=== PATIENT | male | born 1940 | race Caucasian/White ===

== ENCOUNTER → 2019-02-07 09:00 | Outpatient (CLI) | payer MEDICARE, BC ==
[2015-08-21 08:06] VITALS: BMI 34.1
[~2019-02-07 09:00] MED LIST: ACCUPRIL20 MG PO; ASPIRIN325 MG PO; ASPIRIN81 MG PO; BAYER CHEWABLE81 MG PO; BRILINTA90 MG PO; CORDARONE200 MG PO; HYDROCHLOROTHIA50 MG; HYDROCHLOROTHIA50 MG PO; HYDROCODONE-APA1 TAB PO; K-DUR20 MEQ PO; LANTUS INSULIN10 ML SC; LASIX40 MG PO; LEVAQUIN750 MG PO; LOPRESSOR25 MG PO; LOVENOX INJ100 MG/ML SC; MAG-OX 400 MG400 MG PO; NITROQUICK0.4 MG SL; PLAVIX75 MG PO; PRAVACHOL80 MG PO; RESTORIL7.5 MG PO; XANAX1 MG PO
--- NOTE | 2019-02-09 12:59 | EC ---
PATIENT:ADALI MILLER DATE OF SERVICE: 02/07/19 SEX: M MEDICAL RECORD: [id number] DATE OF : 40 LOCATION:[facility] [place] AGE OF PATIENT: 78 ADMISSION DATE: 02/07/19 REFERRING PHYSICIAN: INTERPRETING PHYSICIAN: ADRIAN MONAE MD ECHOCARDIOGRAM REPORT ECHO CHARGES 4 ECHO COMPLETE Date: 02/07/19 CLINICAL DIAGNOSIS: CARDIOMYOPATHY H/O HTN-A-FIB ECHOCARDIOGRAPHIC MEASUREMENTS (adult normal given) AC root (d.<3.7cm) 3.9 cm LV Septum d (<1.2 cm> 1.5 cm Valve Excursion 2.4 cm LV Septum (systole) 1.7 cm Left Atria (s.<4.0cm> 4.9 cm LVPW d(<1.2cm) 0.9 cm RV (d.<2.3cm) 3.0 cm LVPW (sytole) 1.3 cm LV diastole(<5.6CM) 5.3 cm MV E-F(>70mm/sec) cm LV systole 3.9 cm LVOT Diameter 2.2 cm MV exc.(>10mm) cm Est.ejection fraction (50-75%) % DOPPLER: LVIT cm/sec A 95.0 cm/sec E 63.0 cm/sec LA cm/sec RVSP 22.3 mmHg LVOT 83.0 cm/sec AOP1/2T m/s Asc. Ao 105 cm/sec RVOT 49.0 cm/sec RA cm/sec PA 74.0 cm/sec AV Gradient Peak 4.4 mmHg AV Mean 2.7 mmHg AV Area 3.3 cm MV Gradient Peak 4.8 mmHg MV Mean 4.8 mmHg MV Area cm COMMENTS: OP - HC Culinary Worker: 1 SINA SUGAR GROVE Spring Forger: 3 Dr. Camarillo TAPE# PACS Pericardial Effusion N DATE OF SERVICE: Adequate 2D echo, Color Flow, Spectral Doppler, and M-mode LVH is present. LV internal dimensions are normal. LV is mildly globally hypo with EF mildly reduced. Estimated EF of 40% to 45%. Aortic valve is tricuspid. No evidence of stenosis of Doppler interrogation. Left atrium dilated at 4.9 cm. Mitral valve shows no prolapse. Trace MR. Right-sided chambers are grossly normal. Mild TR. ECHOCARDIOGRAM REPORT [id number] ADALI MILLER TRANSINT:[id number] Voice Confirmation ID: [id number] DOCUMENT ID: [id number] ADRIAN MONAE MD at 1259 CC: [id number] DICTATION DATE: 02/08/191433 LOCAL TRUCK DRIVER: 02/08/19 2311 DEP CLI 02/07/19 [place] [id number] [place] [id number]
== END | disposition home or self-care (01) ==
LOC: D.HCCECHO 09:00
PROVIDERS: ATTEND Internal Medicine Interventional Cardiology
DX: I42.9 Cardiomyopathy, unspecified (principal)

== ENCOUNTER 2019-09-19 17:06 | Inpatient (IN) | payer MEDICARE, BC ==
[~2019-09-19] VITALS: Ht 193 cm; Wt 118.2 kg
[2019-09-19 17:43] LABS: BASOPHILS 0.2 % (0-2); EOSINOPHILS 0.7 % (0-7); HEMOGLOBIN 14.3 g/dL (13.5-17.5); IMMATURE GRANULOCYTES 0.4 % (0-5); LYMPHOCYTES 24.8 % (15-50); MCH 29.2 pg (26.0-34.0); MCHC 32.5 g/dL (31.0-37.0); MCV 89.8 fL (80.0-100.0); MEAN PLATELET VOLUME 10.4 fL (7.4-10.4); MONOCYTES 9.1 % (2-11); NEUTROPHILS 64.8 % (40-80); PLATELET COUNT 294 10x3/uL (130-400); RDW 14.9 % (11.5-14.5); WBC 12.1 10x3/uL (4.8-10.8)
[2019-09-19] MEDS ORDERED: BAYER CHEWABLE81 MG PO (18:07)
[2019-09-19] MEDS ORDERED: ASPIRIN325 MG PO (18:08)
[2019-09-19] MEDS ORDERED: CRESTOR20 MG PO (18:11)
[2019-09-19] MEDS ORDERED: VITAMIN B-6100 MG PO (18:12)
[2019-09-19] MEDS ORDERED: VITAMIN B-12100 MCG PO (18:12)
[2019-09-19] MEDS ORDERED: ASCORBIC ACID500 MG PO (18:12)
[2019-09-19] MEDS ORDERED: LANTUS INS100 UNITS/ SC (18:13)
[2019-09-19] MEDS ORDERED: NOVOLOG100 UNIT/1 SC (18:13)
[2019-09-19 18:14] LABS: T4 THYROXINE 9.9 ug/dL (4.7-13.3); THYROID STIMULATING HORMONE 1.48 uIU/mL (0.36-3.74)
[2019-09-19 18:17] VITALS: BP 121/74; Ht 193 cm; Wt 118.2 kg
[2019-09-19 19:04] LABS: CKMB 0.9 U/L (0.0-3.6)
[2019-09-19 19:05] LABS: TROPONIN-I < 0.017 ng/mL (0.000-0.060)
[2019-09-19 20:00] VITALS: BP 120/58; BP 131/50; BP 138/61
[2019-09-20] VITALS (9 sets, daily range): BP systolic 116–168; BP diastolic 44–73
[2019-09-20 06:24] LABS: ANION GAP 6.9 mmol/L (8-16); CALCIUM 8.3 mg/dL (8.5-10.1); CARBON DIOXIDE 30.8 mmol/L (21.0-32.0); CREATININE - SERUM 1.3 mg/dL (0.6-1.3); POTASSIUM - SERUM 3.7 mmol/L (3.5-5.1)
--- NOTE | 2019-09-20 06:37 | HP ---
PATIENT: ADALI MILLER MEDICAL RECORD: [id number] ACCOUNT: [id number] LOCATION:[address] : 40 ADMISSION DATE: 09/19/19 PCP: MIREYA GOODE MD HISTORY AND PHYSICAL EXAMINATION REASON FOR ADMISSION: Lightheadedness and fatigue. HISTORY OF PRESENT ILLNESS: The patient is a 78-year-old male with previous history of AODM, remote non-STEMI 06/2015 with a distal RCA PTCA remotely and subacute non-STEMI 08/2015. He was admitted by Dr. Goode at that time for CABG. He had been feeling pretty well, had an echo a year ago that showed an EF of 40-45% and LAE with atrial size of 4.9 cm. He has had paroxysmal atrial fibrillation. He said for the last 3 months he has been a little tired. If he stands up too long, he will see spots and feel lightheaded. He has to sit down, he cannot do much in the yard like he used to. His brother who was over with him yesterday and he was standing up talking to him and almost fainted. Denies chest pain, but had some mild dyspnea on exertion. He has seen Dr. Camarillo First of the Year and had felt well and I saw him as well, he was not having any of these symptoms. He is advised to come to the office today where he was noted to be orthostatic with a blood pressure of 110/60 sitting, 120/60 lying, the heart rate in the 50s. EKG showed sinus bradycardia with trigeminal unifocal PVCs and slow rate. He is now admitted for hypotension, possible sick sinus syndrome. He is on low-dose beta ilana and antihypertensives. PAST MEDICAL HISTORY: Non-STEMI times 2 in 2016, AODM, hyperlipidemia, RCA stent with multivessel disease, essential hypertension, remote gallstone pancreatitis post cholecystectomy, nephrolithiasis, osteoarthritis, BPH, obesity, remote pneumonia, and diabetic retinopathy. PAST SURGICAL HISTORY: Kidney stone removal in 1991, cholecystectomy in 1984, bilateral rotator cuff injuries without repair remotely, and CABG 2016. FAMILY HISTORY: Mother at 50 of unknown cause. Father from suicide at 45. SOCIAL HISTORY: Nonsmoker, has occasional Santa. Retired. ALLERGIES: SULFA AND LIPITOR. MEDICATIONS: Metoprolol 12.5 b.i.d., hydrochlorothiazide 50 mg p.o. q.a.m., quinapril 20 mg a day, Lantus 38 units subQ q.p.m., sliding scale insulin. Aspirin 325 mg a day, Crestor 20 mg at bedtime. REVIEW OF SYSTEMS: CONSTITUTIONAL: He has been fatigued for almost 3 months. No fever. Fair appetite. HEENT: No recent visual change, sinus congestion, or sore throat. RESPIRATORY: Mild dyspnea on exertion. No cough, sputum production. CARDIAC: No exertional chest pain, claudication, edema. Has felt lightheaded at times when he stands. GASTROINTESTINAL: No nausea, vomiting, change in stools, blood per rectum. GENITOURINARY: Nocturia once nightly. ENDOCRINE: Denies polyuria, polydipsia, heat or cold intolerance. NEUROLOGIC: No history of stroke, TIA, or vascular headaches. HISTORY AND PHYSICAL [id number] ADALI MILLER INTEGUMENT: No rash or itching. PSYCHIATRIC: Denies depressed mood. PHYSICAL EXAMINATION: GENERAL: The patient is alert and oriented, but a little lightheaded when he stands. VITAL SIGNS: Height 76 inches, weight is 250, heart rate is 50 with ectopic beats. Sats 94% on room air. GENERAL: The patient appears pale, but alert and oriented. HEENT: His eyes are clear. Oropharynx unremarkable. NECK: Supple, without bruits or masses. CHEST: Clear without wheeze or rales. HEART: Bradycardic with occasional ectopic beat. No murmur. Chest wall is well healed from sternotomy. ABDOMEN: Obese, soft, nontender, no organomegaly. GENITOURINARY: Deferred. EXTREMITIES: 2+ bipedal edema. NEUROLOGIC: He has decreased sensation bottoms of both feet to light touch. LABORATORY DATA AND DIAGNOSTIC STUDIES: His EKG shows sinus bradycardia with trigeminal PVCs. No old EKG to compare. Labs are currently pending. His blood pressure was orthostatic with lying 120/60, sitting 110/60 and standing 90/60 and heart rate in the 50s. ASSESSMENT: 1. Orthostatic hypotension. 2. Bradycardia, possible early sick sinus syndrome. 3. History of atrial fibrillation. 4. Ventricular arrhythmia, trigeminy. 5. Previous yyt-SU-ghcmoqusq myocardial infarction with CABG in 2016, hypertension, diabetes mellitus with A1c of 8.0. 6. Hyperlipidemia. PLAN: The patient admitted for cardiac monitoring. We will give fluids tonight. Hold antihypertensives and beta blockers. Echocardiogram, cardiology consult if signs of sick sinus syndrome occur. TRANSINT:[id number] Voice Confirmation ID: [id number] DOCUMENT ID: [id number] SYL ARRINGTON MD at 0637 CC: [id number] DICTATION DATE: 09/19/191753 BRANCH ASSOCIATE TELLER: 09/19/19 2352 ADM IN [place] [address] [place] [address]
--- NOTE | 2019-09-20 07:32 | NUR ---
ORTHOSTATIC VS: LAYING- BP 135/64 HR 56. SITTING- BP 156/71 HR 61. STANDING- BP 154/67 HR 66.
[2019-09-20 08:10] LABS: T4 THYROXIN - FREE 1.21 ng/dL (0.76-1.46); THYROID STIMULATING HORMONE 1.44 uIU/mL (0.36-3.74)
--- NOTE | 2019-09-20 12:19 | NUR ---
I have reviewed this patient and I concur with the Shift Assessment completed by the Licensed Practical Nurse today this shift.
--- NOTE | 2019-09-20 15:30 | NUR ---
CASE MANAGEMENT WANTS TO KNOW IF PT CAN BE DC'D SINCE CARDIOLOGY IS NOT GOING TO DO ANYTHING FURTHER WHILE IN HOSPITAL. CALLED AND SPOKE WT DR. KAMARA NURSE RONALDO AND SHE STATES SHE WILL LEAVE A NOTE FOR HIM.
--- NOTE | 2019-09-20 16:58 | NUR ---
SPOKE WITH DR. ARRINGTON HE STATES HE WANTS TO HYDRATE PATEINET OVERNIGHT AND GET A CTA CAROTID TO CHECK FOR RIGHT CAROTID STENOSIS TOMORROW MORNING BEFORE HE CAN GO. HE STATES TO ORDER NS AT 50ML/HR AND ORDER CTA. I VERBALIZED UNDERSTANDING. HE STATES TO TRANSFER HIM INTO PT'S ROOM. TRANSFERED OVER THE PHONE TO ROOM.
--- NOTE | 2019-09-20 19:00 | NUR ---
RECEIVED BEDSIDE REPORT. PATIENT IS ALERT AND ORIENTED, RESTING COMFORTABLY IN BED. RESPIRATIONS ARE EVEN AND UNLABORED. NO S/S OF DISTRESS. NO C/O PAIN. CALL LIGHT WITHIN REACH. WILL CPOC.
[2019-09-21] VITALS: BP 125/64; BP 126/39; BP 130/56
[2019-09-21 04:00] VITALS: BP 114/62; BP 128/57; BP 131/65
[2019-09-21 05:32] LABS: HEMATOCRIT 41.1 % (42.0-54.0); HEMOGLOBIN 13.8 g/dL (13.5-17.5); MCH 29.5 pg (26.0-34.0); MCHC 33.6 g/dL (31.0-37.0); MEAN PLATELET VOLUME 10.1 fL (7.4-10.4); NEUTROPHILS 56.3 % (40-80); PLATELET COUNT 280 10x3/uL (130-400); RBC 4.68 10x6/uL (4.20-6.10); RDW 14.3 % (11.5-14.5); WBC 9.9 10x3/uL (4.8-10.8)
[2019-09-21 05:37] LABS: MCV 87.8 fL (80.0-100.0)
[2019-09-21 05:57] LABS: ANION GAP 8.6 mmol/L (8-16); CALCIUM 8.7 mg/dL (8.5-10.1); CARBON DIOXIDE 29.4 mmol/L (21.0-32.0); CREATININE - SERUM 1.2 mg/dL (0.6-1.3)
--- NOTE | 2019-09-21 08:22 | NUR ---
ORTHOSTATIC VS: SITTING- BP 146/65 HR 69. STANDING- BP 147/69 HR 80. LAYING- BP 134/61 HR 75.
[2019-09-21 09:00] VITALS: BP 134/61; BP 146/65; BP 147/69
--- NOTE | 2019-09-21 10:19 | NUR ---
CALLED AND SPOKE WITH RONALDO ARIAS AT DR. ARRINGTON'S OFFICE. SHE STATES SHE WILL HAVE DR. ARRINGTON CALL ME BACK ABOUT PT'S RESULTS AND IF HE CAN BE DC. I VERBALIZED UNDERSTANDING.
--- NOTE | 2019-09-21 11:07 | NUR ---
SPOKE WTIH DR. ARRINGTON OVER THE PHONE AND READ HIM RESULTS FROM CTA. HE STATES THATS NOT BAD WHAT THE DOPPLER READ AND HE IS NOT IN BAD SHAPE. HE STATES TO TELL PT THIS AND TO PUT IN A DISCHARGE ORDER. D/C BETABLOCKERS, HCTZ, AND LISINOPRIL. HAVE CARDILOGY SET UP PT WITH EVENT MONITOR AND HAVE PT F/U WITH THEM AND TO FOLLOW UP WITH HIM IN 1 WEEK . I VERBALIZED UNDERSTANDING.
--- NOTE | 2019-09-21 13:20 | MORECARE ---
CASE MANAGEMENT DISCHARGE SUMMARY PATIENT: ADALI MILLER UNIT: [id number] ADM DATE: 09/20/19 AGE: 78 : 40 SEX: M ROOM/BED: D.0725 AUTHOR: JANINE FLETCHER PHYSICIAN: REFERRING PHYSICIAN: SYL MONTILLA MD DATE OF SERVICE: 09/21/19 Discharge Plan Patient Name: ADALI MILLER Facility: [facility]:[place] : 1940 Planned Disposition: Home Anticipated Discharge Date: 09/21/19 Discharge Date: Expected LOS: 1 Initial Reviewer: [email or web address] Initial Review Date: 09/19/2019 Generated: 09/21/19 2:19 pm Comments DCP- Discharge Planning Updated by [email or web address]: Lata Morse on 09/21/19 12:[address] DC needs: CM contacted Jennie, with Dr. Camarillo's office, the office is aware of the need for an Event monitor, and appointment for follow-up October 24 @1100. Encouraged patient to call the provided phone number, when his Event monitor arrives, through the mail, to have assistance with putting it on and having it activated. He and his voice understanding. No other needs voiced. CM met with patient to discuss initial discharge planning. Patient is in agreement to proceed with the assessment. Patient reports that he lives at home independently with his , Lottie Miller. Patient is alert/oriented. Stairs/steps: Lives in a 3 story house, stairs have rails. PCP: Dr. Montilla. Pharmacy: [facility]. Patient states he has been able to obtain all of her prescribed medications. HHS: No. DME: No. Patient gives permission to speak with family members/care givers. Emergency contact: Lottie Miller () [phone]. 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 CM discussed the availability of HH, Rehab, SNF, OP Therapy, DME services. Patient denies the need for additional services at this time and feels safe returning to previous environment. Patient denies hospitalization within the past 30 days. Patient denies the use of community resources SALES SUPERINTENDENT. Transportation at time of discharge: Lottie. Coverage Notice Reviewer: [email or web address] Ney Ovalles Notice Issued Date-Time: 09/20/2019 14:00 Notice Type: Medicare Outpatient Observation Notice Notice Delivered To: Patient Relationship to Patient: Director Channel Name: Delivery Method: HAND - Hand Delivered Eleanor Days: Prior Verbal Notification: Recipient Understood Notice: Yes Recipient Signature: Yes Med Rec Note Co-signed by Attending: Coverage Notice Comment: STOVER DELIVERED Patient Name: ADALI MILLER Page [id number] at 1320 All edits/amendments must be made on the electronic document DICTATION DATE: 09/21/19 1320 SEMICONDUCTOR WAFERS MARKER: NAE 09/21/19 1320 RPT#: [id number] DC DATE: STATUS: ADM IN [facility] [address] [place] [address] END OF REPORT
--- NOTE | 2019-09-21 13:23 | NUR ---
I have reviewed this patient and I concur with the Shift Assessment completed by the Licensed Practical Nurse today this shift.
--- NOTE | 2019-09-21 14:00 | NUR ---
DISCHARGE TEACHING DONE AND INSTRUCTIONS GIVEN TO PT. PT HAS NO FURTHER QUESTIONS. CHART COPY SIGNED. RIGHT WRIST 20G IV DC'D WITH CATH INTACT. TELEMTRY DC'D.
--- NOTE | 2019-09-21 14:30 | NUR ---
PT TAKEN OUT VIA WC AND LEFT WITH IN PERSONAL VEHICLE.
--- NOTE | 2019-09-21 16:57 | MORECARE ---
CASE MANAGEMENT DISCHARGE SUMMARY PATIENT: ADALI MILLER UNIT: [id number] ADM DATE: 09/20/19 AGE: 78 : 40 SEX: M ROOM/BED: D.2268 AUTHOR: JANINE FLETCHER PHYSICIAN: REFERRING PHYSICIAN: SYL MONTILLA MD DATE OF SERVICE: 09/21/19 Discharge Plan Patient Name: ADALI MILLER Facility: [facility]:[place] : 1940 Planned Disposition: Home Anticipated Discharge Date: 09/21/19 Discharge Date: 09/21/2019 Expected LOS: 1 Initial Reviewer: [email or web address] Initial Review Date: 09/19/2019 Generated: 09/21/19 5:56 pm Comments DCP- Discharge Planning Updated by [email or web address]: Lata Morse on 09/21/19 12:[address] DC needs: CM contacted Jennie, with Dr. Camarillo's office, the office is aware of the need for an Event monitor, and appointment for follow-up October 24 @1100. Encouraged patient to call the provided phone number, when his Event monitor arrives, through the mail, to have assistance with putting it on and having it activated. He and his voice understanding. No other needs voiced. CM met with patient to discuss initial discharge planning. Patient is in agreement to proceed with the assessment. Patient reports that he lives at home independently with his , Lottie Miller. Patient is alert/oriented. Stairs/steps: Lives in a 3 story house, stairs have rails. PCP: Dr. Montilla. Pharmacy: [facility]. Patient states he has been able to obtain all of her prescribed medications. HHS: No. DME: No. Patient gives permission to speak with family members/care givers. Emergency contact: Lottie Miller () [phone]. Patient is Independent with all ADL's, medication management SHAKER TENDER. CM discussed the availability of HH, Rehab, SNF, OP Therapy, DME services. Patient denies the need for additional services at this time and feels safe returning to previous environment. Patient denies hospitalization within the past 30 days. Patient denies the use of community resources SHAKER TENDER. Transportation at time of discharge: Lottie. Coverage Notice Reviewer: [email or web address] Ney Ovalles Notice Issued Date-Time: 09/20/2019 14:00 Notice Type: Medicare Outpatient Observation Notice Notice Delivered To: Patient Relationship to Patient: Toolroom Machinist Name: Delivery Method: HAND - Hand Delivered Eleanor Days: Prior Verbal Notification: Recipient Understood Notice: Yes Recipient Signature: Yes Med Rec Note Co-signed by Attending: Coverage Notice Comment: STOVER DELIVERED Last DP export: 09/21/19 12:20 p Patient Name: ADALI MILLER Page [phone] at 1657 All edits/amendments must be made on the electronic document DICTATION DATE: 09/21/191655 VENEER MANUFACTURER: NAE 09/21/191655 RPT#: [id number] DC DATE:09/21/19 STATUS: DIS IN [facility] [address] [place] [address] END OF REPORT
--- NOTE | 2019-09-22 08:51 | EC ---
PATIENT:ADALI MILLER DATE OF SERVICE: 09/20/19 SEX: M MEDICAL RECORD: [id number] DATE OF : 40 LOCATION:D.M2 D.212 AGE OF PATIENT: 78 ADMISSION DATE: 09/20/19 REFERRING PHYSICIAN: INTERPRETING PHYSICIAN: ADRIAN MONAE MD ECHOCARDIOGRAM REPORT ECHO CHARGES 4 ECHO COMPLETE Date: 09/20/19 CLINICAL DIAGNOSIS: BRADYCARDIA, CHF, CAD ECHOCARDIOGRAPHIC MEASUREMENTS (adult normal given) AC root (d.<3.7cm) 3.6 cm LV Septum d (<1.2 cm> 1.2 cm Valve Excursion 2.0 cm LV Septum (systole) 1.4 cm Left Atria (s.<4.0cm> 3.8 cm LVPW d(<1.2cm) 1.3 cm RV (d.<2.3cm) 3.7 cm LVPW (sytole) 1.5 cm LV diastole(<5.6CM) 5.6 cm MV E-F(>70mm/sec) cm LV systole 4.9 cm LVOT Diameter 1.8 cm MV exc.(>10mm) cm Est.ejection fraction (50-75%) % DOPPLER: LVIT cm/sec A 88 cm/sec E 106 cm/sec LA cm/sec RVSP 19.0 mmHg LVOT 77 cm/sec AOP1/2T m/s Asc. Ao 99 cm/sec RVOT 65 cm/sec RA cm/sec PA 81 cm/sec AV Gradient Peak 3.9 mmHg AV Mean 2.2 mmHg AV Area 2.5 cm MV Gradient Peak 5.1 mmHg MV Mean 2.6 mmHg MV Area cm COMMENTS: Certified Professional Controller: Angie SHEPHERD Miller Supervisor: 3 Dr. Camarillo TAPE# PACS Pericardial Effusion N DATE OF SERVICE: Adequate 2D, color flow imaging, spectral Doppler, and M-Mode Mild LVH. LV internal dimension is normal. Wall motion is normal. EF is greater than or equal to 55%. Aortic valve is tricuspid. No evidence of stenosis by Doppler interrogation. The left atrium is normal at 3.8 cm. Mitral valve shows no prolapse. Trace to mild MR. Right-sided chambers are grossly normal. Trivial TR. ECHOCARDIOGRAM REPORT [id number] ADALI MILLER TRANSINT:[id number] Voice Confirmation ID: [id number] DOCUMENT ID: [id number] ADRIAN MONAE MD at 0851 CC: [id number] DICTATION DATE: 09/21/19 142 DIRECTOR OF PSYCHIATRY: 09/21/19 1505 DIS IN 09/21/19 [facility] [address] [place] [id number]
== END 2019-09-21 14:31 | disposition home or self-care (01) | DRG 312 ==
LOC: D.M2 17:06 → OBSVTIME 17:08 → D.M2 09-20 21:59
PROVIDERS: ADMIT Family Medicine; ATTEND Family Medicine
DX: I95.1 Orthostatic hypotension (principal); R00.1 Bradycardia, unspecified; R00.8 Other abnormalities of heart beat; I10 Essential (primary) hypertension; E11.9 Type 2 diabetes mellitus without complications; E78.5 Hyperlipidemia, unspecified; I25.10 Atherosclerotic heart disease of native coronary artery without angina pectoris; I65.21 Occlusion and stenosis of right carotid artery

== ENCOUNTER → 2020-08-28 11:15 | Outpatient (CLI) | payer MEDICARE, BC ==
[2019-09-19 18:17] VITALS: BMI 32.5
[~2020-08-28 11:15] MED LIST changes: +ASCORBIC ACID500 MG PO; +CRESTOR20 MG PO; +LANTUS INS100 UNITS/ SC; +NOVOLOG100 UNIT/1 SC; +VITAMIN B-12100 MCG PO; +VITAMIN B-6100 MG PO
== END | disposition home or self-care (01) ==
LOC: D.HCCECHO 11:15
PROVIDERS: ATTEND Internal Medicine Interventional Cardiology
DX: I25.10 Atherosclerotic heart disease of native coronary artery without angina pectoris (principal)

== ENCOUNTER → 2020-09-04 09:46 | Outpatient (CLI) | payer MEDICARE, BC ==
[2019-09-19 18:17] VITALS: BMI 32.5
== END | disposition home or self-care (01) ==
LOC: D.US 09:30
PROVIDERS: ATTEND Thoracic Surgery (Cardiothoracic Vascular Surgery)
DX: I65.23 Occlusion and stenosis of bilateral carotid arteries (principal)